=== PATIENT | female | born 1990 | race Caucasian/White ===

== ENCOUNTER 2016-11-04 09:14 | Emergency (ER) | payer OTHER ==
[2016-11-04 12:13] LABS: HEMOGLOBIN 14.1 gm/dl (12.3-15.3); RED BLOOD COUNT 4.51 M/UL (4.00-5.10); WHITE BLOOD COUNT 9.7 K/UL (4.5-11.0)
[2016-11-04 12:17] LABS: BUN/CREATININE RATIO 14 (0-10)
== END 2016-11-04 16:35 | disposition left against medical advice (07) ==
LOC: ER1 09:14
PROVIDERS: Emergency Medicine
DX: R10.9 Unspecified abdominal pain (principal); F17.200 Nicotine dependence, unspecified, uncomplicated; Z90.49 Acquired absence of other specified parts of digestive tract
CPT/HCPCS: 36415; 80053; 81001; 82150; 83690; 84703; 85025; 87086; 99284

== ENCOUNTER 2020-09-25 13:17 | Emergency (ER) | payer OTHER | END 2020-09-25 13:42 | disposition left against medical advice (07) | LOC: ER1 13:17 | DX: Z53.21 Procedure and treatment not carried out due to patient leaving prior to being seen by health care provider (principal) ==